=== PATIENT | male | born 1955 | race Caucasian/White ===

== ENCOUNTER → 2020-07-13 | Outpatient (CLI) | payer MEDICARE ==
--- NOTE | 2020-07-13 11:40 | CT ---
EXAMINATION TYPE: CT CervThoracic spine wo con DATE OF EXAM: 07/13/2020 COMPARISON: Plain film cervical spine 06/19/2020 HISTORY: Neck pain, mid back pain CT DLP: 1011.3 mGycm Automated exposure control for dose reduction was used. Helical imaging obtained through the cervical and thoracic spine FINDINGS: Cervical, thoracic vertebral bodies are intact. There is multilevel foraminal encroachment greatest a t C3-4, C4-5, C6-7, facet arthropathy. Spinal curvature is noted in the thoracic spine. Spinal fusion changes present at C5-6. Posterior extension of endplate disc complex is present C6-7 causing mild t o moderate spinal stenosis. Posterior extension endplate disc complex at C2-3, C3-4, C4-5 causes mild anterior mass effect on the thecal sac. Thoracic spine also shows multilevel spondylosis. Thoracic vertebral bodies show preserved height and bone mineralization. Cervical vertebral bodies al so show preserved height and anatomic alignment. IMPRESSION: DEGENERATIVE DISC DISEASE, SCOLIOSIS, POSTOP CHANGES AND ADDITIONAL FINDINGS ABOVE.
--- NOTE | 2020-07-13 17:27 | MR ---
EXAMINATION TYPE: MR cervical spine wo/w con DATE OF EXAM: 07/13/2020 COMPARISON: CT same day HISTORY: 65-year-old male Neck pain, BUE weakness. Prior surgery. Technique: Multiplanar, multisequence images of the cervical spine were obtained before and after adm inistration of 7.5 mL intravenous Gadavist gadolinium contrast. FINDINGS: No craniocervical junction abnormality, predental space widening, or prevertebral soft tissue swellin g. Mild heterogeneity of marrow signal without suspicious bone marrow placement. There is either a degenerative or congenital interbody ankylosis at C5-C6. Moderate multilevel degenerative disc disease with desiccated discs and disc osteophyte complex forma tion. Ligamentum flavum thickening scattered throughout as well as multilevel facet and uncovertebral joint arthropathy. Grade 1 anterolisthesis at C7-T1. Reversal of the normal cervical lordosis. At C2-C3, bilateral facet arthropathy with mild bilateral neuroforaminal narrowing. No spinal canal s tenosis. At C3-C4, broad-based discussed by complex with ligamentum flavum thickening as well as facet and unc overtebral joint arthropathy. Changes result in moderate bilateral neuroforaminal stenosis with moder ate narrowing of the spinal canal with abutment of both the dorsal and ventral cord but no cord compr ession. At C4-C5, mild disc osteophyte complex with superimposed left paracentral osteophytic ridging abuttin g the left ventral cord. No significant spinal canal stenosis. Facet and uncovertebral joint arthropa thy. There is mild left and moderate right neuroforaminal stenosis. At the fused C5-C6 level, no canal or foraminal stenosis. At C6/C7, disc osteophyte complex with uncovertebral joint and facet degenerative change. Ligamentum flavum thickening. Changes result in a moderate narrowing of the spinal canal with abutment of both t he dorsal and ventral cord but no cord compression. Hypertrophic facet and uncovertebral joint arthro rosy. Moderate bilateral neuroforaminal stenosis. Severe hypertrophic facet arthropathy on the right . At C7-T1, degenerative grade 1 anterolisthesis secondary to hypertrophic facet are properly. Changes result in a moderate right neuroforaminal stenosis. No spinal canal stenosis. Diffuse disc bulge noted at T2-T3 without significant spinal canal stenosis. No abnormal enhancement within the spinal canal. Normal course and signal intensity of the cervical spinal cord. IMPRESSION: 1. 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 Reversal of the normal cervical lordosis at this level. Degenerative grade 1 anterolisthesis at C7-T1. 2. Moderate multilevel spondylotic change. Changes result in moderate spinal canal stenosis at C3-C4 and C6-C7 with abutment of both the dorsal and ventral cord but no cord compression or high-grade can al compromise. 3. Variable moderate bilateral neuroforaminal stenoses. 4. Severe hypertrophic facet arthropathy particularly on the right at C6-C7.
== END | disposition home or self-care (01) ==
LOC: RADMRIMAIN 09:23
PROVIDERS: ATTEND Orthopaedic Surgery
DX: M48.02 Spinal stenosis, cervical region (principal); M43.13 Spondylolisthesis, cervicothoracic region; M47.892 Other spondylosis, cervical region; M51.34 Other intervertebral disc degeneration, thoracic region; M41.84 Other forms of scoliosis, thoracic region; Z98.1 Arthrodesis status
CPT/HCPCS: 72128; 72125; 72156; A9585

== ENCOUNTER → 2020-07-13 | Outpatient (CLI) | payer MEDICARE | END | disposition home or self-care (01) | LOC: RADCTMAIN 09:45 | PROVIDERS: ATTEND Orthopaedic Surgery | DX: Z53.9 Procedure and treatment not carried out, unspecified reason (principal) ==

== ENCOUNTER → 2020-07-13 | Outpatient (CLI) | payer MEDICARE ==
--- NOTE | 2020-07-13 12:50 | XR ---
EXAMINATION TYPE: XR scoliosis survey, 2 views DATE OF EXAM: 07/13/2020 Comparison: None Clinical History: 65-year-old male M54.2 back pain Findings: Very gentle leftward truncal shift. 12 rib-bearing thoracic vertebral bodies. Mild degenerative disc disease mid thoracic spine. Vertebral body heights are preserved. Alignment is maintained. However, l imited assessment of the upper thoracic vertebral bodies due to overlying patient's shoulders. 5 lumbar type vertebral bodies. Unable to exclude a grade 1, nearly grade 2 anterolisthesis at L5-S1. Trace grade 1 retrolisthesis L2-L3, L3-L4, L4-L5. Lumbar vertebral body heights are preserved. Mild degenerative disc space narrowing and endplate spondylosis throughout. Hypertrophic facet arthropathy in the lumbar spine. Vertebral body heights appear maintained in the lumbar spine. Impression: 1. Gentle leftward truncal shift could be positional or due to muscle spasm. No significant scoliotic curvature seen. 2. Mild degenerative disc disease mid thoracic spine and mild degenerative disc disease throughout th e lumbar spine. 3. Hypertrophic facet arthropathy throughout the lumbar spine with a trace grade 1 retrolisthesis fro m L2 through L5 levels. 4. Unable to exclude a grade 1, nearly grade 2 anterolisthesis at L5-S1. This could be degenerative o r secondary to pars interarticularis defects.
== END | disposition home or self-care (01) ==
LOC: RADXRMAIN 09:39
PROVIDERS: ATTEND Orthopaedic Surgery
DX: M51.34 Other intervertebral disc degeneration, thoracic region (principal); M51.36 Other intervertebral disc degeneration, lumbar region; M43.17 Spondylolisthesis, lumbosacral region; M47.816 Spondylosis without myelopathy or radiculopathy, lumbar region
CPT/HCPCS: 72082

== ENCOUNTER → 2024-08-13 | Outpatient (CLI) | payer MEDICARE, OTHER ==
--- NOTE | 2024-08-13 12:04 | MR ---
EXAMINATION TYPE: MR cervical spine wo con DATE OF EXAM: 08/13/2024 COMPARISON: 07/13/2020 HISTORY: 69-year-old male [id number], Neck pain into fingers, hx of laminectomy TECHNIQUE: Multiplanar, multisequence images of the cervical spine were acquired without contrast. FINDINGS: No craniocervical junction abnormality, predental space widening, or prevertebral soft tissue swellin g. Moderate degenerative disc disease throughout with desiccated and bulging disks and some scattered mi nimal to mild disc interspace narrowing. Ligamentum flavum thickening at C3-C4 and C6/C7. Small bulging discs are also present in T2-T3 and T3-T4. Reversal of the normal cervical lordosis with interbody ankylosis of C5-C6 redemonstrated. Trace grade 1 anterolisthesis C4-C5 and C7-T1 have developed in the interval. Multilevel moderate to advanced hypertrophic facet and uncovertebral joint arthropathy is present. At C2-C3, mild facet and uncovertebral joint arthropathy without significant canal or foraminal steno sis. At C3-C4, there is broad-based disc osteophyte complex with contiguous moderate uncovertebral joint a nd facet arthropathy. Changes result in moderate right greater than left neural foraminal stenosis. L igamentum flavum thickening is also present and contributes to overall moderate narrowing of the spin al canal with AP canal dimension of 7 mm. Abutment of both the dorsal and ventral cord without cord f lattening. Similar prior. At C4-C5, uncovertebral joint and facet arthropathy, moderate in degree. Changes result in moderate b ilateral foraminal stenosis. New trace grade 1 anterolisthesis here. Left paracentral disc osteophyte complex abutting the ventral cord. No significant spinal canal stenosis. At C5-C6, mild facet arthropathy. Interbody ankylosis. No spinal canal or foraminal stenosis. At C6-C7, broad-based disc osteophyte complex with contiguous moderate facet and uncovertebral joint arthropathy. Changes result in moderate bilateral foraminal stenosis. Ligamentum flavum thickening is also present and contribute to moderate spinal canal stenosis with abutment of both the dorsal and v entral cord but no significant cord flattening. AP canal dimension 7 mm. At C7-T1, hypertrophic facet arthropathy with new trace grade 1 anterolisthesis. No significant spina l canal stenosis. Moderate right neuroforaminal stenosis. IMPRESSION: 1. Moderate multilevel degenerative disc disease. Multilevel moderate to advanced facet and uncoverte bral joint arthropathy. 2. 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 New trace grade 1 anterolisthesis C4-C5 and C7-T1. 3. Ligamentum flavum thickening and bulging discs at both C3-C4 and C6-C7 contributing to similar mod erate spinal canal stenoses (AP canal dimension 7 mm). There is similar abutment of both the dorsal a nd ventral cord. No discrete myelopathic cord signal change seen. 4. Variable moderate neuroforaminal stenoses as outlined above. [facility], , 08/13/2024 12:02 PM
== END | disposition home or self-care (01) ==
LOC: RADMRIMAIN 10:57
PROVIDERS: ATTEND Orthopaedic Surgery
CPT/HCPCS: 72141